=== PATIENT | male | born 1945 | race Two or more races ===

== ENCOUNTER 2023-01-02 07:45 | Inpatient (IN) | payer OTHER ==
[~2023-01-02] VITALS: Ht 165.1 cm; Wt 100.7 kg
[~2023-01-02 07:45] MED LIST: AVALIDE 300-121 EACH PO; CARDURA1 MG PO; CIPRO500 MG PO; ELIQUIS2.5 MG PO; ISOSORBIDE MONO30 M2; LIPITOR20 MG PO; METFORMIN HCL500 M2 PO; METOPROLOL SUCC50 MG PO; PEPCID AC10 MG PO; PERCOCET 5-3251 EACH PO; PROTONIX40 MG PO; SERTRALINE HCL25 MG; XARELTO20 M1 PO
[2023-01-02] MEDS ORDERED: LIPITOR20 MG PO (09:29)
[2023-01-02] MEDS ORDERED: PROTONIX20 MG PO (09:30)
[2023-01-09] MEDS ORDERED: CIPRO500 MG PO (10:01)
[2023-01-09] MEDS ORDERED: PERCOCET 5-3251 EACH PO (10:01)
[2023-01-09] MEDS ORDERED: ELIQUIS2.5 MG PO (10:01)
== END 2023-01-10 20:07 | DRG 470 ==
LOC: O/R 01-07 05:10 → SURG 01-07 05:10
PROVIDERS: ADMIT Orthopaedic Surgery; ATTEND Orthopaedic Surgery
PROC: 0SRC0J9 Replacement of Right Knee Joint with Synthetic Substitute, Cemented, Open Approach (ICD-10-PCS; principal; 2023-01-09)
DX: M17.11 Unilateral primary osteoarthritis, right knee (principal); D62 Acute posthemorrhagic anemia; I10 Essential (primary) hypertension; E11.9 Type 2 diabetes mellitus without complications; K21.9 Gastro-esophageal reflux disease without esophagitis